=== PATIENT | male | born 1975 | race Caucasian/White ===

== ENCOUNTER 2020-12-14 15:50 | Emergency (ER) | payer MEDICAID ==
[~2020-12-14] VITALS: Ht 172.7 cm; Wt 88.5 kg
[2020-12-14 18:50] VITALS: BP 115/71
== END 2020-12-14 18:50 | disposition home or self-care (01) ==
LOC: M.ERS 15:50
DX: Z59.0 Homelessness (principal); Z88.5 Allergy status to narcotic agent